=== PATIENT | male | born 1980 ===

== ENCOUNTER 2017-08-05 10:41 | Emergency (ER) | payer OTHER ==
[~2017-08-05] VITALS: Ht 180.3 cm; Wt 93.0 kg
[~2017-08-05 10:41] MED LIST: ACET325 PO; ALBU90OI INH; CEPH500 PO; CITA20 PO; CRUTCH2 USE; CRUTCH4 USE; DOXY100 PO; HYDACE5 PO; IBUP200; NAPR500 PO; OXYACE5T PO; PROACE100 PO; SULTRIDS PO; SULTRISS PO; TRAM50 PO; VENL25 PO; Zofran Odt4 MG SL
[2017-08-05 11:04] LABS: Bilirubin, Urine Neg (Neg); Blood, Urine 2+ (Neg); Glucose Qualitative, Urine Neg (Neg); Ketones, Urine 4+ (Neg); Leukocyte Esterase, Urine Neg (Neg); Nitrite, Urine Neg (Neg); Protein, Urine 2+ (Neg); Source, Urine Catheter; Urobilinogen, Urine NORM (Normal)
[2017-08-05 11:12] LABS: Appearance, Urine Clear (Clear); Color, Urine Yellow (P-Yellow)
[2017-08-05 11:14] LABS: Squamous Epithelial Cells Few /hpf (Few)
[2017-08-05 11:15] LABS: Bacteria Few /hpf; Granular Casts Rare /lpf (0); Hyaline Casts Rare /lpf (0-2)
[2017-08-05 11:19] LABS: U Amphetamine Screen DETECTED; U Barbituate Screen Not Detected; U Benzodiazapine Screen Not Detected; U Buprenorphine Screen Not Detected; U Cannabinoids Screen Not Detected; U Cocaine Screen Not Detected; U Methadone Screen Not Detected; U Methamphetamine Screen DETECTED; U Opiates Screen Not Detected; U Oxycodone Screen Not Detected; U Phencyclidine Screen Not Detected; U Propoxyphene Screen Not Detected
[2017-08-05 11:30] LABS: BASOPHILS ABSOLUTE AUTO 0.04 K/mm3 (0.00-0.23); BASOPHILS PERCENT AUTO 0 % (0-2); EOSINOPHILS PERCENT AUTO 0 % (0-6); Hematocrit 42.3 % (37.0-53.0); Hemoglobin 13.9 g/dL (13.5-17.5); IMMATURE GRAN ABSOLUTE AUTO 0.12 K/mm3 (0.00-0.10); IMMATURE GRAN PERCENT AUTO 1 % (0-1); LYMPHOCYTES ABSOLUTE AUTO 0.53 K/mm3 (0.84-5.20); LYMPHOCYTES PERCENT AUTO 3 % (21-46); MONOCYTES ABSOLUTE AUTO 0.71 K/mm3 (0.16-1.47); MONOCYTES PERCENT AUTO 4 % (4-13); Mean Corpuscular HGB 30.5 pg (26.0-34.0); Mean Corpuscular HGB Conc 32.9 g/dL (31.5-36.5); Mean Corpuscular Volume 93 fL (80-100); NEUTROPHILS ABSOLUTE AUTO 16.92 K/mm3 (1.96-9.15); NEUTROPHILS PERCENT AUTO 92 % (41-73); RDW Coefficient Variation 12.8 % (11.7-14.2); RDW Standard Deviation 43.6 fL (35.1-46.3); Red Blood Cell Count 4.56 M/mm3 (4.30-5.90); White Blood Cell Count 18.32 K/mm3 (4.00-11.30)
[2017-08-05 11:40] LABS: Mean Platelet Volume 12.3 fL (9.1-12.4); Platelet Count 132 K/mm3 (150-400)
[2017-08-05 11:47] LABS: Ethanol (Alcohol), Blood, Med <3 mg/dL; Salicylate 5.4 mg/dL (2.8-20.0)
[2017-08-05 11:52] LABS: Thyroid Stimulating Hormone 0.264 uIU/mL (0.360-4.800)
[2017-08-05 12:15] LABS: Alanine Aminotransfer (ALT/SGP 91 U/L (12-78); Albumin, Blood 4.3 g/dL (3.4-5.0); Albumin/Globulin Ratio 1.2 (0.8-1.8); Alk Phos 95 U/L (50-136); Anion Gap 16 mmol/L (6-16); Aspartate Aminotrans (AST/SGOT 78 U/L (12-37); Bilirubin, Total 0.7 mg/dL (0.1-1.0); Blood Urea Nitrogen 27 mg/dL (8-24); Bun/Creatinine Ratio 28.5 (12.0-20.0); CO2, Blood 16 mmol/L (21-32); Calcium, Blood 8.1 mg/dL (8.5-10.1); Chloride, Blood 107 mmol/L (98-108); Creatinine, Blood 0.95 mg/dL (0.60-1.20); Globulin, Blood 3.5 g/dL (2.2-4.0); Glomerular Filtration Rate >60 (60-); Glucose, Blood 46 mg/dL (70-99); Potassium, Blood 4.4 mmol/L (3.5-5.5); Sodium, Blood 139 mmol/L (136-145); Total Protein, Blood 7.8 g/dL (6.4-8.2)
[2017-08-05 12:18] LABS: Acetaminophen, Random <2.0 ug/mL (10.0-30.0)
== END 2017-08-05 13:28 | disposition home or self-care (01) ==
LOC: ER 10:41
PROVIDERS: Emergency Medicine
DX: T68.XXXA Hypothermia, initial encounter (principal); F15.10 Other stimulant abuse, uncomplicated; E16.2 Hypoglycemia, unspecified; F17.200 Nicotine dependence, unspecified, uncomplicated; Z88.0 Allergy status to penicillin; Z91.018 Allergy to other foods; X31.XXXA Exposure to excessive natural cold, initial encounter
CPT/HCPCS: 36415; 80053; 81001; 84443; 85025; 96361; 96374; 99285; G0480; J7030

== ENCOUNTER 2017-09-03 21:15 | Emergency (ER) | payer OTHER ==
[~2017-09-03] VITALS: Ht 177.8 cm; Wt 89.4 kg
[2017-09-03] MEDS ORDERED: CEPH500 PO (22:00)
[2017-09-03] MEDS ORDERED: Bactrim Ds Tab1 EACH PO (22:00)
== END 2017-09-03 22:04 | disposition home or self-care (01) ==
LOC: ER 21:15
DX: L03.011 Cellulitis of right finger (principal); Z88.0 Allergy status to penicillin; Z91.018 Allergy to other foods; F17.210 Nicotine dependence, cigarettes, uncomplicated
CPT/HCPCS: 73140; 99283

== ENCOUNTER → 2017-12-17 | Outpatient (CLI) | payer OTHER ==
[~2017-12-17] MED LIST changes: +Bactrim Ds Tab1 EACH PO
== END ==
LOC: LAB 18:05
DX: L97.521 Non-pressure chronic ulcer of other part of left foot limited to breakdown of skin (principal)
CPT/HCPCS: 87070; 87075; 87077; 87147; 87186; 87205

== ENCOUNTER 2018-01-10 01:58 | Emergency (ER) | payer OTHER | END 2018-01-10 03:49 | disposition left against medical advice (07) | LOC: ER 01:58 | DX: Z53.21 Procedure and treatment not carried out due to patient leaving prior to being seen by health care provider (principal) ==